=== PATIENT | male | born 1985 | race Caucasian/White ===

== ENCOUNTER 2016-12-11 20:43 | Emergency (ER) | payer OTHER ==
--- NOTE | ~2016-12-11 | CR7 ---
[facility] A Service of [facility] & [facility] RADIOLOGY TEXT RESULTS PATIENT: MINI NASH LOCATION: [facility] : [birth year] UNIT #: [id number] AGE: [address]: Tray Garcia MD SEX: M ORDER DR: [id number] [facility] [address] [place], [place] [address] [id number] MR#: [id number] Acc #: [id number] NAME: MINI NASH. : 1985 SEX: M STUDY DATE/TIME: 12/11/2016 22:16 UNIT: [facility] ROOM: STUDY DESCRIPTION: CR Abdomen Single AP View Attending Physician: Tray Garcia M.D. Ordering Physician: Tray Garcia M.D. Primary Care Physician: Adelina Lyle Aprn MEDICAL IMAGING REPORT This report is preliminary unless electronic signature is present EXAM Abdomen 12/11/2016 HISTORY Constipation with irregular bowel movements for 3 weeks. No bowel movement since November with generalized abdominal pain for 3 weeks. FINDINGS AP, supine view of the abdomen shows normal bowel gas pattern. No abnormal masses or calculi are seen. The osseous structures appear normal. No soft tissue abnormality is seen. IMPRESSION Normal single view abdomen. Dictated by... Sylvester Miles M.D. THIS IS AN ELECTRONICALLY VERIFIED REPORT Sylvester Miles M.D. at 12/12/2016 2:57 PM ROSA/chivo TD: 12/12/2016 09:00 JOB #: [id number] MEDICAL IMAGING REPORT COPY
--- NOTE | ~2016-12-11 | EKG ---
PATIENT: MINI NASH UNIT #: [id number] Ventricular Rate: 75 BPM Atrial Rate: 75 BPM P-R Interval: 146 ms QRS Duration: 96 ms Q-T Interval: 406 ms QTC Calculation(Bezet): 453 ms P [place]: 86 degrees Calculated R [place]: 78 degrees Calculated T [place]: 71 degrees Diagnosis Line: Normal sinus rhythm with sinus arrhythmia Diagnosis Line: Normal ECG Diagnosis Line: No previous ECGs available Diagnosis Line: Confirmed by SANDOR DEAN MD ([id number]) on Diagnosis Line: 12/14/2016 11:56:34 PM INTERPRETING MD: JERMAINE MARTINEZ
[2016-12-11 20:37] LABS: BASOPHIL# 0.1 X10e3 (0-0.3); BASOPHIL% 1.8 % (0-2.5); EOSINOPHIL# 0.6 X10e3 (0-0.7); EOSINOPHIL% 11.5 % (0.0-7.0); HEMATOCRIT 39.5 % (38.0-50.0); HEMOGLOBIN 13.2 gm/dL (13.0-16.0); LYMPHOCYTE# 2.6 X10e3 (1.0-3.5); LYMPHOCYTE% 50.3 % (17.0-45.0); MEAN CELL VOLUME 87.3 FL (83-96); MEAN CORPUSCULAR HEMOGLOBIN 29.2 PG (28-34); MEAN CORPUSCULAR HGB CONC 33.4 g/dL (30-36); MEAN PLATELET VOLUME 8.3 FL (6.5-11.5); MONOCYTE# 0.6 X10e3 (0-1.0); MONOCYTE% 11.7 % (3.0-12.0); NEUTROPHIL# 1.3 X10e3 (1.5-7.1); NEUTROPHIL% 24.7 % (40-75); PLATELET COUNT 214 X10e3 (140-420); RED BLOOD COUNT 4.53 X10e (3.90-5.60); RED CELL DISTRIBUTION WIDTH 13.7 % (11.0-15.5); WHITE BLOOD COUNT 5.2 X10e3 (4.0-10.5)
[2016-12-11 20:38] LABS: DIFF IND YES
[~2016-12-11 20:43] MED LIST: ADDERALL 30 MG30 M1; CIPRO PO; FLOMAX0.4 M1 PO; IBUPROFEN800 MG; MOTRIN600 M1 PO; PAXIL PO; PHENERGAN25 MG PO; ULTRAM PO; WELLBUTRIN-SR100 M1
[2016-12-11 20:59] LABS: PLATELET ESTIMATE NORMAL (NORMAL); RBC NORMAL YES
[2016-12-11 21:00] LABS: ALBUMIN SERUM 4.5 g/dL (3.5-5.0); ALKALINE PHOSPHATASE 42 U/L (32-92); ALT (SGPT) 24 U/L (10-40); AMYLASE 32 U/L (0-46); AST (SGOT) 33 U/L (10-42); BILIRUBIN, DIRECT 0.1 mg/dL (0.0-0.2); BILIRUBIN,INDIRECT 0.6 mg/dL (0.0-0.9); BILIRUBIN,TOTAL 0.7 mg/dL (0.2-2.0); BLOOD UREA NITROGEN 14 mg/dL (9-23); BUN/CREATININE RATIO 12.72; CALCIUM SERUM 9.1 mg/dL (8.4-10.2); CARBON DIOXIDE 28 mmol/L (22-31); CHLORIDE 101 mmol/L (100-111); CREATININE SERUM 1.1 mg/dL (0.6-1.4); GLOM FILT RATE Estimated ABOVE60 mL/min (>60); GLUCOSE FASTING 80 mg/dL (70-110); LIPASE 14 U/L (22-51); POTASSIUM 3.3 mmol/L (3.5-5.1); PROTEIN TOTAL SERUM 6.6 g/dL (6.0-8.3); SODIUM 138 mmol/L (135-145)
[2016-12-11 21:39] LABS: URINE SOURCE CLEAN CATCH
[2016-12-11 21:50] LABS: URINE APPEARANCE CLEAR; URINE BILIRUBIN NEG (NEG); URINE BLOOD 2+ (NEG); URINE COLOR YELLOW; URINE GLUCOSE NEG (NEG); URINE KETONE 2+ (NEG); URINE LEUKOCYTE ESTERASE TRACE (NEG); URINE NITRATE NEG (NEG); URINE PH 6.5 (5-8); URINE PROTEIN NEG (NEG); URINE SPECIFIC GRAVITY 1.023 (1.003-1.035); URINE UROBILINOGEN 0.2 MG/DL (NEG)
[2016-12-11 21:53] LABS: URBCS1 AUWI 25-50 /[HPF] (0-2); URINE BACTERIA AUWI NEG (NEGATIVE); URINE SQUAMOUS EPITHELIAL CELL NONE SEEN /[HPF]
[2016-12-11 21:57] LABS: CULTURE INDICATED? NO
[2016-12-11 21:59] LABS: AMPHETAMINE POS (NEG); BARBITURATES NEG (NEG); BENZODIAZEPINES NEG (NEG); COCAINE NEG (NEG); MARIJUANA NEG (NEG); OPIATES NEG (NEG); TRICYCLIC ANTIDEPRESSANTS NEG (NEG); U METHADONE NEG (NEG)
== END 2016-12-11 22:55 | disposition home or self-care (01) ==
LOC: CED 20:43
PROVIDERS: Emergency Medicine
DX: S06.5X0A Traumatic subdural hemorrhage without loss of consciousness, initial encounter (principal); K59.00 Constipation, unspecified; X58.XXXA Exposure to other specified factors, initial encounter; Y92.89 Other specified places as the place of occurrence of the external cause
CPT/HCPCS: 36415; 74000; 80048; 80076; 80307; 81003; 82150; 83690; 85025; 93005; 96360; 99284